=== PATIENT | male | born 1985 | race Caucasian/White ===

== ENCOUNTER 2018-03-05 20:30 | Emergency (ER) | payer SELFPAY ==
[2018-03-05] MEDS: IBUPROFEN 200 MG TAB PO (22:49)
[2018-03-05] MEDS: ACETAMINOPHEN 500 MG TAB PO (22:49)
== END 2018-03-06 00:02 | disposition home or self-care (01) ==
LOC: FTE 03-06 00:02
DX: S06.0X0A Concussion without loss of consciousness, initial encounter (principal); R40.2252 Coma scale, best verbal response, oriented, at arrival to emergency department; R40.2362 Coma scale, best motor response, obeys commands, at arrival to emergency department; R40.2142 Coma scale, eyes open, spontaneous, at arrival to emergency department; V49.49XA Driver injured in collision with other motor vehicles in traffic accident, initial encounter
CPT/HCPCS: 70450; 72040; 99284-25